=== PATIENT | male | born 1985 | race Two or more races ===

== ENCOUNTER 2016-11-20 02:19 | Emergency (ER) | payer MEDICAID ==
[~2016-11-20] VITALS: Ht 170.2 cm; Wt 94.5 kg
[~2016-11-20 02:19] MED LIST: AZIT250T94 PO; IBUP-1542 PO
[2016-11-20 02:23] VITALS: Ht 170.2 cm; Wt 94.5 kg
--- NOTE | 2016-11-20 06:35 | ERD ---
ER Documentation Chief Complaint Date/Time DATE: 11/20/16 TIME: 06:34 Chief Complaint weakness x 2 days, dizziness HPI 31-year-old male otherwise healthy presents with generalized weakness, intermittent dizziness on and off for 2 weeks. He describes it as a lightheaded sensation, felt disoriented. Patient states that his hands feel shaky, gets sweaty. He states that he tried drinking alcohol after work to relax he states that actually made him feel better. He denies palpitations, nausea, vomiting, chest pain or shortness of breath. ROS All systems reviewed and are negative except as per history of present illness. Medications Home Meds Active Scripts Azithromycin* (Zithromax*) 250 Mg Tablet, 250 MG PO .ZPACK DIRECTED, #6 TAB TAKE 500 MG (2 TABS) THE FIRST DAY THEN 250 MG (1 TAB) DAYS 2-5 Prov:SILAS VARELA MD 12/27/15 Ibuprofen* (Motrin*) 600 Mg Tab, 600 MG PO Q6, #20 TAB Prov:SILAS VARELA MD 12/27/15 Allergies Allergies: Uncoded Allergies: FISH (Allergy, Unknown, 12/27/15) PMhx/Soc Medical and Surgical Hx: pt denies Medical Hx, pt denies Surgical Hx Hx Alcohol Use: Yes (SOCIALLY) Hx Substance Use: No Hx Tobacco Use: No Smoking Status: Never smoker Physical Exam Vitals Vital Signs Date Time Temp Pulse Resp B/P Pulse Ox O2 Delivery O2 Flow Rate FiO2 11/20/16 02:23 97.7 81 20 144/96 100 Physical Exam General: Well-developed, well-nourished. The patient appears in no acute distress. HEENT: Head is normocephalic, atraumatic. No scleral icterus. Pupils are equal , round, and reactive. Oral mucous membranes are moist. No pharyngeal erythema. Neck: Supple. Nontender. Lungs: Clear to auscultation. Normal air movement. Heart: Regular rate and rhythm. S1 and S2 are normal. No murmurs, gallops, or rubs. Abdomen: Soft, nontender, nondistended. Bowel sounds are normoactive. Extremities: No clubbing or cyanosis. Normal pulses. Moving extremities x 4. No weakness. Neurologic: Alert and oriented 3. No focal deficits. Skin: Normal turgor. No rash or lesions. Result Diagram: 11/20/16 0730 11/20/16 0730 Results 24 hrs Laboratory Tests Test 11/20/16 07:30 White Blood Count 6.310^3/ul Red Blood Count 5.4310^6/ul Hemoglobin 16.3g/dl Hematocrit 46.9% Mean Corpuscular Volume 86.4fl Mean Corpuscular Hemoglobin 30.0pg Mean Corpuscular Hemoglobin Concent 34.8g/dl Red Cell Distribution Width 12.7% Platelet Count 03848^3/UL Mean Platelet Volume 10.7fl Neutrophils % 63.8% Lymphocytes % 26.9% Monocytes % 7.9% Eosinophils % 0.8% Basophils % 0.3% Nucleated Red Blood Cells % 0.0/100WBC Neutrophils # (Manual) 4.010^3/ul Lymphocytes # 1.710^3/ul Monocytes # 0.510^3/ul Eosinophils # 0.110^3/ul Basophils # 0.010^3/ul Nucleated Red Blood Cells # 0.010^3/ul Sodium Level 143mmol/L Potassium Level 4.4mmol/L Chloride Level 106mmol/L Carbon Dioxide Level 26mmol/L Anion Gap 15 Blood Urea Nitrogen 10mg/dl Creatinine 0.87mg/dl Glucose Level 92mg/dl Calcium Level 9.2mg/dl 12-lead EKG(interpreted by supervising physician): Dr. Prather Rate/Rhythm: Normal Sinus Rhythm, rate of 66 QRS, ST, T-waves: No changes consistent w/ acute ischemia, no intervals, no dysrhythmias, no ectopy Impression: No evidence of ischemia or arrhythmia DIAGNOSTIC IMAGING REPORT Patient: KELSEY LIEBERMAN : 1985 Age: 31 Sex: M MR #: [id number] DOS: 11/20/16 0612 Ordering MD: MIRIAM MENENDEZ PA-C Location: [facility] Room/Bed: PROCEDURE: CT brain without contrast CLINICAL INDICATION: Dizziness TECHNIQUE: CT of the brain without contrast was performed on a multidetector CT scanner, with multiplanar reformats. One or more of the following dose reduction techniques were used: Automated exposure control, adjustment in mA and / or kV according to patient size, use of iterative reconstructive technique. CTDIvol = 45 mGy; DLP = 720 mGy-cm. COMPARISON: None available FINDINGS: No acute intracranial hemorrhage is identified. No extra-axial fluid collection is seen. There is no mass effect. No midline shift is identified. Ventricles and sulci are within normal limits for size and configuration. The density of the brain is within normal limits. Monsalve-white differentiation is preserved. Calvarium and skull base are intact. Mastoid air cells and imaged paranasal sinuses grossly clear. IMPRESSION: Unremarkable noncontrast CT of the brain. RPTAT: EE .John Boyle MD, MD Date Time Electronically viewed and signed by .John Boyle MD, MD on 11/20/2016 07:06 .O/ Procedures/MDM 31-year-old male presents with intermittent dizziness, weakness, sweating palms for the past 2 weeks. Patient presents with symptoms that he states improves when he drinks alcohol. Patient had a workup done including EKG, labs and CT scan of the brain, I will normal. There are no signs of dehydration, electrolyte abnormalities, leukocytosis, anemia. CT scan of the brain was negative for intracranial hemorrhage, mass-effect. EKG was also obtained that shows normal sinus rhythm. Symptoms may be related to stress, advised him to follow-up with his primary care doctor for outpatient workup. Departure Diagnosis: Primary Impression: Dizziness Condition: Good MIRIAM MENENDEZ PA-C Nov 20, 2016 06:35
--- NOTE | 2016-11-20 07:06 | RADRPT ---
PROCEDURE: CT brain without contrast CLINICAL INDICATION: Dizziness TECHNIQUE: CT of the brain without contrast was performed on a multidetector CT scanner, with multi planar reformats. One or more of the following dose reduction techniques were used: Automated expos ure control, adjustment in mA and / or kV according to patient size, use of iterative reconstructive technique. CTDIvol = 45 mGy; DLP = 720 mGy-cm. COMPARISON: None available FINDINGS: No acute intracranial hemorrhage is identified. No extra-axial fluid collection is seen. There is no mass effect. No midline shift is identified. Ventricles and sulci are within normal limits for size and configuration. The density of the brain is within normal limits. Monsalve-white differentiation is preserved. Calvarium and skull base are intact. Mastoid air cells and imaged paranasal sinuses grossly clear. IMPRESSION: Unremarkable noncontrast CT of the brain. RPTAT: EE .John Boyle MD, MD Date Time Electronically viewed and signed by .John Boyle MD, on 11/20/2016 07:06 .O/
[2016-11-20 07:40] LABS: BASOPHILS % 0.3 % (0.0-2.0); EOSINOPHILS # 0.1 10^3/ul (0.0-0.5); EOSINOPHILS % 0.8 % (0.0-7.0); HEMATOCRIT 46.9 % (42.0-52.0); HEMOGLOBIN 16.3 g/dl (14.0-18.0); LYMPHOCYTES # 1.7 10^3/ul (0.8-2.9); LYMPHOCYTES % 26.9 % (15.0-51.0); MEAN CORPUSCULAR HGB CONC 34.8 g/dl (32.0-37.0); MEAN CORPUSCULAR VOLUME 86.4 fl (82.0-101.0); MEAN PLATELET VOLUME 10.7 fl (7.4-10.4); MONOCYTE # 0.5 10^3/ul (0.3-0.9); MONOCYTES % 7.9 % (0.0-11.0); NEUTROPHILS % 63.8 % (39.0-77.0); PLATELET COUNT 282 10^3/UL (140-415); RED BLOOD COUNT 5.43 10^6/ul (4.70-6.10); RED CELL DISTRIBUTION WIDTH 12.7 % (11.5-14.5); WHITE BLOOD COUNT 6.3 10^3/ul (4.8-10.8)
[2016-11-20 08:00] LABS: CALCIUM 9.2 mg/dl (8.4-10.2); CREATININE 0.87 mg/dl (0.61-1.24); POTASSIUM 4.4 mmol/L (3.5-5.1)
== END 2016-11-20 08:19 | disposition home or self-care (01) ==
LOC: FTE 02:19
DX: R42 Dizziness and giddiness (principal)
CPT/HCPCS: 36415; 70450; 80048; 85025; 93005; Z7502